=== PATIENT | male | born 1980 | race African-American/Black ===

== ENCOUNTER 2020-02-14 23:30 | Emergency (ER) | payer OTHER | END 2020-02-15 01:53 | disposition other institution (70) | LOC: ED 23:30 | DX: Z02.89 Encounter for other administrative examinations (principal) ==

== ENCOUNTER 2020-02-14 23:30 | Emergency (ER) | payer OTHER ==
[~2020-02-14] VITALS: Ht 190.5 cm; Wt 113.4 kg
[2020-02-14 23:32] VITALS: Ht 190.5 cm; Wt 113.4 kg
[2020-02-15 00:49] VITALS: BP 141/95
== END 2020-02-15 00:49 | disposition other institution (70) ==
LOC: ED 23:30
DX: I10 Essential (primary) hypertension (principal)